=== PATIENT | male | born 1945 | race Two or more races ===

== ENCOUNTER 2025-02-02 15:11 | Inpatient (IN) | payer OTHER, SELFPAY ==
[2025-02-02] VITALS (10 sets, daily range): BP systolic 128–167; BP diastolic 54–86; BMI 29.7
[2025-02-02 08:07] LABS: % Basophils 0.4 % (0-2); % Eosinophils 0.1 % (0-6); % Immature Granulocytes 0.3 % (0-0.5); % Lymphocytes 12.3 % (20.5-51.1); % Monocytes 7.6 % (1.7-9.3); % Neutrophils 79.3 % (42.2-75.2); Absolute Lymphocytes 1.2 10^3/uL (1.2-3.4); Absolute Monocytes 0.7 10^3/uL (0.1-0.6); Absolute Neutrophils 7.4 10^3/uL (1.4-6.5); Hematocrit 38.9 % (39.0-52.0); Hemoglobin 13.3 g/dL (13.0-18.0); Mean Corp Hgb Conc. 34.2 g/dL (33.0-37.0); Mean Corpuscular Hgb 31.4 pg (27.0-31.0); Mean Corpuscular Volume 91.7 fL (80.0-94.0); Mean Platelet Volume 10.5 fL (7.4-10.4); Nucleated Red Blood Cells % 0 % (-); Platelet Count 206 10^3/uL (130-400); Red Blood Cell Count 4.24 10^6/uL (4.70-6.10); Red Cell Dist. Width 13.2 % (11.5-14.5); White Blood Cell Count 9.4 10^3/uL (4.8-10.8)
[2025-02-02 08:09] LABS: Urine Albumin 1+ (Neg - Trace); Urine Bilirubin Negative (Negative); Urine Character Clear (Clear); Urine Color Yellow; Urine Glucose Negative (Negative); Urine Ketone Negative (Negative); Urine Leukocyte Negative (Negative); Urine Nitrite Negative (Negative); Urine Occult Blood Negative (Negative); Urine Specific Gravity 1.025 (<1.030); Urine Urobilinogen Negative (Neg - 1+)
[2025-02-02 08:29] LABS: ALT (SGPT) 36 U/L (0-50); AST (SGOT) 37 U/L (17-59); Albumin 4.3 g/dl (3.5-5.0); Alkaline Phosphatase 71 U/L (38-126); Blood Urea Nitrogen 25 mg/dl (9-20); Calcium 9.9 mg/dl (8.4-10.2); Carbon Dioxide 23 mmol/L (22-30); Chloride 112 mmol/L (98-107); Glucose 118 mg/dl (70-99); Lipase 50 U/L (23-300); Potassium 4.2 mmol/L (3.5-5.1); Sodium 142 mmol/L (135-145); Total Bilirubin 0.5 mg/dl (0.2-1.3); Total Protein 8.2 g/dl (6.3-8.2); eGFR 47.36
[2025-02-02 08:42] LABS: Urine Urothelial Cell 0-2 /LPF (FEW)
[2025-02-02 08:43] LABS: Urine Bacteria Few (Negative); Urine Red Blood Cell 0-2 /HPF (0-2)
--- NOTE | 2025-02-02 08:50 | ED.GENMED ---
History of Present Illness
General
Chief Complaint: Abdominal Pain
Source: patient and spouse
Exam Limitations: none
Time Seen by Provider: 02/02/25 08:35
Nursing documentation reviewed up to this point in time: agreed with
History of Present Illness
History of Present Illness:
Note:
CHIEF COMPLAINT(S)
Vomiting and abdominal pain
HISTORY OF PRESENT ILLNESS
The patient is a 79-year-old male who presents with persistent vomiting and abdominal pain. The symptoms began on night, characterized initially by dry heaving. The patient reports experiencing pain primarily in the lower abdomen and left
lower back, describing it as severe. The pain occasionally extends to the upper abdomen, though to a lesser extent. The patient experiences abdominal bloating and has a history suggestive of kidney stones, having experienced a similar sensation
earlier this year.
The patient has a history of surgical repair for a tear thought to be related to a hernia approximately four years ago; a tear was repaired with a mesh placement. The patient experienced similar symptoms when previously diagnosed with and treated
for kidney stones.
ALLERGIES
The patient is allergic to Ciprofloxacin.
PAST SURGICAL HISTORY
The patient had a surgical repair involving mesh for an abdominal tear, possibly related to a past hernia, over four years ago. The patient has also undergone surgery for kidney stones removal.
MEDICATIONS
- Amlodipine (dose unspecified)
- Metoprolol (dose unspecified)
- Lisinopril (dose unspecified)
- Rosuvastatin (dose unspecified)
PHYSICAL EXAM
- Nursing notes reviewed and vital signs reviewed.
PROBLEM LIST
Acute:
- Vomiting
- Abdominal pain and bloating
Chronic:
- Hypertension
PLAN
- Insert intravenous line, obtain blood tests, and perform a Computed Tomography scan.
- Evaluate with urinalysis to assist in differential diagnosis of abdominal pain and vomiting.
- Administer anti-nausea medication intravenously.
- Assess need for pain management, offer pain medication if required.
DIFFERENTIAL DIAGNOSIS
The Differential Diagnosis includes, in no particular order and is not limited to:
1. Gastroenteritis
2. Small bowel obstruction
3. Renal colic secondary to recurrent kidney stones
4. Mesenteric ischemia
5. Peptic ulcer disease
6. Appendicitis
7. Pancreatitis
8. Hernia complications
9. Diverticulitis
10. Gastric volvulus
CARE-UPDATE
02/02/25 - 10:[address] Timmons the findings of possible Ciglin volvulus on T.M. Pelvis. Dr. Lui to assess patient, with a likely plan for surgical intervention in the operating room to repair the volvulus. Consideration for [facility] has been noted.
Expectation for patient admission to the hospitalists for further management and monitoring.
Disposition:
DIAGNOSIS
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
SUMMARY OF ENCOUNTER
The patient was seen in the emergency department due to persistent vomiting and abdominal pain, which appeared severe in the lower abdomen and left lower back. These symptoms began on night and were initially characterized by dry heaving.
Considering the severity and nature of the symptoms, a computed tomography (CT) scan was performed, suggesting a possible volvulus. The clinical presentation and imaging findings directed the diagnostic focus towards a sigmoid volvulus,
necessitating surgical intervention.
DISPOSITION
The patient was admitted to the hospitalists for further management and monitoring.
CONSIDERATION FOR ADMISSION
Admission was considered essential due to the diagnosis of sigmoid volvulus and the need for surgical intervention.
MANAGEMENT OF THE PATIENTS CARE WAS DISCUSSED WITH
Dr. Timmons was consulted regarding the findings of possible sigmoid volvulus on the CT scan. There was a discussion about assessing the patient with a likely plan for surgical intervention in the operating room to repair the volvulus.
INDEPENDENT INTERPRETATION OF TESTS
My independent interpretation of the CT scan indicated the presence of a sigmoid volvulus.
PLAN
The plan included surgical intervention to repair the sigmoid volvulus, with an expectation for patient admission to the hospitalists for further management and monitoring.
MEDICAL DECISION MAKING
Number and Complexity of Problems Addressed: The patient presented with acute symptoms of vomiting and abdominal pain, leading to a differential diagnosis process that included serious conditions like sigmoid volvulus. The complexity involved
assessing several potential causes of the symptoms to arrive at the need for surgical intervention.
Data: A CT scan was conducted, revealing the sigmoid volvulus, which significantly directed the subsequent treatment plan. The findings were corroborated by discussions with a surgical garment assembler.
Risk: The decision to admit the patient and proceed with surgical intervention was influenced by the potential severity of a sigmoid volvulus, which could pose life-threatening complications if not promptly addressed.
Phy Exam
Physical Exam
Physical Exam:
Physical Exam
General: no apparent distress, not acutely ill
Neck: supple. no meningeal signs. normal posterior pharynx
Heart: s1/s2 regular rate and rhythm, no murmur. equal radial
pulses.
HEENT: Pupils equal round reactive to light, EOMI
Lungs: no acute respiratory distress. clear bilaterally
Abdomen: normal bowel sounds. Abdomen distended, diffusely tender. No CVAT
Neuro: alert and oriented. no focal neurological deficits cranial nerves II through XII intact
Skin: no rash
Psychiatric: well kept. interactive and cooperative
Extremities: no edema. no calf tenderness. negative homans. good distal pulses
Course
Orders/Labs/Results
Orders:
Orders
02/02/25 07:53
Complete Blood Count/With Diff Urgent
Comprehensive Metabolic Panel Urgent
Lipase Urgent
Urinalysis Reflex To Culture Urgent
Date Specimen was Collected: 02/02/25
Time Specimen was Collected: 07:43
Urine Microscopic Reflex Cult Urgent
02/02/25 08:49
CT Abd/Pel (IV only)-DH only Urgent
Comment:
Reason For Exam: diffuse abd pain 4-5 days
02/02/25 10:29
Type+Screen Urgent
Abnormal Lab Results
02/02/25
07:53
RBC 4.24 L 10^6/uL
(4.70-6.10)
Hct 38.9 L %
(39.0-52.0)
MCH 31.4 H pg
(27.0-31.0)
MPV 10.5 H fL
(7.4-10.4)
Absolute Neuts (auto) 7.4 H 10^3/uL
(1.4-6.5)
Absolute Monos (auto) 0.7 H 10^3/uL
(0.1-0.6)
Neutrophils % 79.3 H %
(42.2-75.2)
Lymphocytes % 12.3 L %
(20.5-51.1)
Chloride 112 H mmol/L
(98-107)
BUN 25 H mg/dl
(9-20)
Creatinine 1.5 H mg/dL
(0.7-1.3)
Glucose 118 H mg/dl
(70-99)
Urine Bacteria (Reflex) Few A
(Negative)
Urine Albumin (Reflex) 1+ A
(Neg - Trace)
02/02/25 07:53
02/02/25 07:53
Vital Signs
Initial and Last Documented VS:
Initial Vital Signs
Temp Pulse Resp BP Pulse Ox
98.9 F 86 18 159/86 99
02/02/25 06:18 02/02/25 06:18 02/02/25 06:18 02/02/25 06:18 02/02/25 06:18
Last Documented Vital Signs
Temp Pulse Resp BP Pulse Ox
98.9 F 86 18 159/86 99
02/02/25 06:18 02/02/25 06:18 02/02/25 06:18 02/02/25 06:18 02/02/25 06:18
*Pulse Oximetry
Patient hypoxic: no (99)
*Critical Care Note
Total Time (30-74mins, 75-104mins- exclusive of procedures): Not Applicable
Update Note
Update Note:
Discussed with Dr. Fitzgerald who will evaluate patient for endoscopic decompression
ED Attending Note
-
Portions of this chart may have been created with voice recognition software.� Occasional wrong word or��sound alike� substitutions may have occurred due to the inherent limitations of voice recognition software.
Discharge Plan
Departure
Patient Disposition: Admit
Date of Disposition: 02/02/25
Time of Disposition: 10:32
Admit to: Med/Surg
Presentation/result/management discussed w/ accepting MD/DO: Hospitalist
Patient with high blood pressure during this ER visit?: Yes
Condition: Fair
Discharge Problem:
Volvulus of sigmoid colon
Referrals:
Dakota Ramesh MD [Family Provider]
Interventions
Interventions:
*Risk Screen - Suicide Last Done: 02/02/25 06:18
*General Assessment Last Done: 02/02/25 06:18
Discharge Date and Time
Print Language: MARSHALLESE
--- NOTE | 2025-02-02 10:42 | HPS.HSE ---
Family Physician
-
Family Physician: Dakota Ramesh
Chief Complaint
-
Abd pain
History of Present Illness
79M HTN HLD hx Sigmoid Volvulus managed conservatively for years hx Hernia repair p/w persistent vomiting abd pain. Started after dinner two nights ago prior to presentation. Before dinner, patient reported being in his usual state of health.
Severe pain primarily lower abdomen and left lower back. Pain occasionally extends to the upper abdomen. Patient also noted bloating. Pain persisted and worsen over next few days with associate nausea vomiting appetite loss. VSS stable on room
air. Labs relatively unremarkable, possible ANNY vs CKD noted Cr 1.5 CT noted large 11 cm diameter sigmoid volvulus. No CT evidence for colonic ischemia, pneumatosis, pneumoperitoneum, or ascites. Moderate to large amount of fecal material was
noted proximal to volvulus. GI and surgery evaluated and patient was taken urgently to endoscopy suite for decompression. Patient tolerated procedure well and noted significant relief in symptoms afterwards.
Medical History
Past Medical History
Past Medical History: Reports Other
Additional Past Medical History:
as above
Past Surgical History: Reports Other
Additional Past Surgical History:
as above
Social History
Tobacco: Non-smoker
Alcohol: None
Drug: None
Personal:
Living: With Family
Employment: Retired
Family History
Family History: Not pertinent (reviewed)
Allergies / Home Medications
Allergies reflects when Allergies were last updated in [facility] [place].
Home Medications with original date entered in [facility] [place]
Allergy/Medication List:
Allergies
Allergy/AdvReac Type Severity Reaction Status Date / Time
ciprofloxacin (From Cipro) Allergy Unknown Verified 02/02/25 16:16
Home Medications
amlodipine 10 mg tablet 10 mg PO DAILY 02/02/25
cyanocobalamin (vitamin B-12) 100 mcg tablet 100 mcg PO DAILY 02/02/25
metoprolol succinate 50 mg tablet,extended release 24 hr 50 mg PO DAILY 02/02/25
rosuvastatin 10 mg tablet 10 mg PO DAILY 02/02/25
Review of Systems
-
A 12 point ROS was completed and negative except as noted: Yes
Constitutional: Reports Other (as below)
Physical Exam
Vital Signs
Vital Signs
Temp Pulse Resp BP Pulse Ox
98.9 F 86 18 159/86 99
02/02/25 06:18 02/02/25 06:18 02/02/25 06:18 02/02/25 06:18 02/02/25 06:18
Physical Exam
General: Other (as below)
Laboratory Results
-
02/02/25 07:53
02/02/25 07:53
Laboratory Results
Total Bilirubin 0.5 mg/dl (0.2-1.3) 02/02/25 07:53
AST 37 U/L (17-59) 02/02/25 07:53
ALT 36 U/L (0-50) 02/02/25 07:53
Alkaline Phosphatase 71 U/L (38-126) 02/02/25 07:53
Lipase 50 U/L (23-300) 02/02/25 07:53
Impression/Plan
-
ROS
General: Denies fever chills night sweats unexpected weight loss
Neuro: Denies seizure shaking loss of consciousness dizziness vertigo
Psych: denies depression hallucinations confusion manic episodes
Endocrine: Denies polyuria polydipsia polyphagia heat/cold intolerance
HEENT: Denies blindness visual disturbances epistaxis
Pulmonary: denies coughing hemoptysis sneezing sob dyspnea on exertion
Cardiovascular: denies chest pain palpitations leg swelling
Hematology: denies signs symptoms of anemia easy bruising/bleeding
Gastrointestinal: Reports nausea vomiting abdomen pain constipation
Genito-Urinary: denies retention incontinence dysuria
Musculoskeletal: denies joint pain weakness
Dermatology: denies rash laceration bruising
Physical Exam
General: No pallor, cyanosis, or jaundice.
HEENT: Throat clear. PERRLA Normocephalic atraumatic
NECK: Supple. No JVD Carotid Bruits
RESPIRATORY: Lungs clear to auscultation. No crackles wheezes stridor
CVS: S1, S2 normal. RRR. No murmur, rub or gallop.
ABDOMEN: Soft, non-tender. No distension. Decreased bowel sounds
Rectum: Rectal tube in place
EXTREMITIES: No peripheral cyanosis or edema.
FENCE BUILDER: AOx3 conversant coherent
IMPRESSION:
79M HTN Sinus Tachycardia HLD hx Sigmoid Volvulus managed conservatively for years hx Hernia repair p/w persistent vomiting abd pain. Started after dinner two nights ago prior to presentation. Before dinner, patient reported being in his usual
state of health. Severe pain primarily lower abdomen and left lower back. Pain occasionally extends to the upper abdomen. Patient also noted bloating. Pain persisted and worsen over next few days with associate nausea vomiting appetite loss. VSS
stable on room air. Labs relatively unremarkable, possible ANNY vs CKD noted Cr 1.5 CT noted large 11 cm diameter sigmoid volvulus. No CT evidence for colonic ischemia, pneumatosis, pneumoperitoneum, or ascites. Moderate to large amount of fecal
material was noted proximal to volvulus. GI and surgery evaluated and patient was taken urgently to endoscopy suite for decompression. Patient tolerated procedure well and noted significant relief in symptoms afterwards.
PLAN:
#Volvulus obstruction status post decompression 02/02/2025
Telemetry admit
GI eval appreciated
Continue rectal tube, diet n.p.o. except meds, as per GI
IVF support
General Surgery eval appreciated, CRS to follow-up Monday
Dilaudid as needed moderate severe pain
Tylenol prn mild pain
Compazine prn nausea
#Possible ANNY vs CKD III
initial Cr 1.5
IVF support
monitor renal function
avoid nephrotoxic agents
#HTN
#Sinus Tachycardia
BP improved following procedure, likely pain causing elevations
homte antihypertensives resumed at reduced doses for now, with holding parameters
Amlodipine 5 mg daily Metoprolol XL 25 mg daily
IV hydralazine prn SBP>140 or DBP>100
IV Lopressor prn HR>120
trend BP and titrate antihypertensive regimen as necessary
#HLD
Statin resumed
dvt ppx Lovenox
GI ppx Protonix
Full Code
I spent a total of 77 minutes with the patient or on the floor. More than 50% of this time involved counseling and coordination of care.
--- NOTE | 2025-02-02 10:49 | CON.GI ---
Consultation
-
Date/Time Consultation Requested: 02/02/25
Date/Time Consultation Performed: 02/02/25
Requesting Provider:
Performing Provider:
Reason for Consultation: Abdominal pain
Medical History
Chief Complaint / HPI
Chief Complaint: Abdominal pain
History of Present Illness:
79-year-old male with no significant past medical history presenting with complaints of lower abdominal pain since Monday morning after breakfast. He reports that he also started dry heaving Monday night without any vomiting. The pain is constant
and is not subsiding, 6 on 10 in intensity without any radiation. Feels bloating. Some flatus but no bowel movement. No previous similar episodes. He reports that he had kidney stones few months ago and had stent placed at [facility] and
initially the pain felt like that but it is much severe. Never had bowel obstruction symptoms , no fevers or chills. No heartburn, trouble swallowing. Normal bowel pattern is 2-3 bowel movements on a daily basis, good evacuation, no laxatives or
stool softeners. No blood in the stool or black stool. No regular NSAID use.
He reports that he has known sigmoid volvulus and follows up with Dr. Little at [facility]. He was told that if he has obstructive symptoms, then it should be taken care of. He gets colonoscopies with her every 3 years for polyps, last
colonoscopy was about 3 years ago.
History of hernia repair 14 years ago and mesh placement. In the emergency room, no leukocytosis noted, creatinine elevated at 1.5 but normal LFTs and lipase.
CT scan of the abdomen and pelvis with IV contrast only showing sigmoid volvulus with large 11 cm dilated air distended loop of sigmoid colon extending superiorly to the level of diaphragm, moderate large amount of fecal material in the ascending,
transverse and descending colon, small hiatal hernia.
Past Medical History
Past Medical History: HTN and Hypercholesterolemia
Past Surgical History: Other (Inguinal hernia repair)
Social History
Tobacco: Non-Smoker
Alcohol: Occasional
Family History
Family History: Reviewed & Not Pertinent
Allergies / Home Medications
Allergy/AdvReac Type Severity Reaction Status Date / Time
ciprofloxacin (From Cipro) Allergy Unknown Verified 02/02/25 06:19
Review of Systems
-
All other systems: A 12 pt ROS was Negative except as stated above in HPI
Vital Signs
Temp Pulse Resp BP Pulse Ox
98.9 F 86 18 159/86 99
02/02/25 06:18 02/02/25 06:18 02/02/25 06:18 02/02/25 06:18 02/02/25 06:18
Physical Exam
Exam
GI: Tender (Lower abdominal discomfort without guarding or rigidity) and Distended
Results
WBC 9.4 10^3/uL (4.8-10.8) 02/02/25 07:53
Hgb 13.3 g/dL (13.0-18.0) 02/02/25 07:53
Hct 38.9 % (39.0-52.0) L 02/02/25 07:53
MCV 91.7 fL (80.0-94.0) 02/02/25 07:53
Plt Count 206 10^3/uL (130-400) 02/02/25 07:53
Absolute Neuts (auto) 7.4 10^3/uL (1.4-6.5) H 02/02/25 07:53
Sodium 142 mmol/L (135-145) 02/02/25 07:53
Potassium 4.2 mmol/L (3.5-5.1) 02/02/25 07:53
Chloride 112 mmol/L (98-107) H 02/02/25 07:53
Carbon Dioxide 23 mmol/L (22-30) 02/02/25 07:53
BUN 25 mg/dl (9-20) H 02/02/25 07:53
Creatinine 1.5 mg/dL (0.7-1.3) H 02/02/25 07:53
Calcium 9.9 mg/dl (8.4-10.2) 02/02/25 07:53
Total Bilirubin 0.5 mg/dl (0.2-1.3) 02/02/25 07:53
AST 37 U/L (17-59) 02/02/25 07:53
ALT 36 U/L (0-50) 02/02/25 07:53
Alkaline Phosphatase 71 U/L (38-126) 02/02/25 07:53
Lipase 50 U/L (23-300) 02/02/25 07:53
Diagnostic Image Results:
Prior GI Procedures:
EGD:
Colonoscopy:
Assessment / Plan
-
79-year-old male with h/o HTN, high cholesterol presenting with complaints of abdominal pain, bloating, dry heaves and CT scan suggesting sigmoid volvulus.
-Sigmoid volvulus with 11 cm air distended loop of sigmoid colon and moderately large amount of fecal material in the ascending colon.
N.p.o., continue IV hydration.
Electrolytes wnl
Explained to the patient that at this time, he will need an endoscopy decompression as this is an urgent situation. I discussed in detail regarding the procedure and also the risks including risk of perforation potentially requiring surgery and
also risk of possible endotracheal intubation if any aspiration risk noted.
Patient and are agreeable.
Surgical team aware.
-
-
Thank you for consultation and allowing me to participate in the patient's care. Please call the [facility] physician during the after hours with any questions or concerns.
[2025-02-02] MEDS: ZOFRAN 4 MG IV (11:53)
[2025-02-02] MEDS: MORPHINE SULFATE 4 MG IV (11:54)
--- NOTE | 2025-02-02 11:54 | CON.GS ---
Addendum entered and electronically signed by You Timmons MD 02/02/25 15:02:
Patient seen and examined this afternoon in the recovery unit after having undergone endoscopic decompression.
Agree with documented consultation note by surgical DOCK COORDINATOR consistent with my current examination and evaluation with additions noted here.
HPI: 79-year-old male presenting to the emergency department with worsening abdominal pain over the course the last 2 days. Progressive abdominal bloating distention discomfort and inability to pass stool since Monday. Due to persistence of his
symptoms he presented for emergency department evaluation and CT imaging was concerning for sigmoid volvulus.
Patient reports a known history of a tortuous/redundant colon and he follows with a colorectal surgeon at [facility], Dr. Hebert.
Post endoscopy he states that he feels much better with complete relief of abdominal pain and improved distention.
AFVSS
NAD AAO x 3. Resting comfortably in stretcher in recovery unit.
ABD: Softly distended, no tenderness on palpation, no rebound rigidity or guarding.
CT imaging reviewed consistent with sigmoid volvulus. No pneumatosis. No extraluminal air.
Assessment/plan: 79-year-old male who presented with sigmoid volvulus but without advanced ischemia, perforation or peritonitis.
Successful endoscopic decompression with gastroenterology. Appreciate assistance with care.
No indications for need for emergent/urgent surgical management however reviewed with patient indications for sigmoidectomy at this hospitalization due to high recurrence risk of sigmoid volvulus after initial event.
Colorectal surgery service will follow with patient for further discussions.
Original Note:
Consultation
-
Date/Time Consultation Performed: 02/02/25 1045
Requesting Provider: Marc
Medical History
-
Chief Complaint: abdominal pain
History of Present Illness:
Mr Barber is a 79 yo male with a h/o left inguinal hernia repair with mesh, HTN and recent ureteroscopy for renal stones at [facility] who presents through the ED today with lower abdominal pain x2 days. He initially developed lower abdominal pain on Monday
after breakfast and it has progressively worsened with dry heaving but no vomiting. He feels bloated but is able to pass some gas but no stools since that time. At baseline, he reports his bowels are regular and he normally stools 2x a day and
occasionally has lower abdominal cramping. He has followed with Dr. Hebert for many years for a known volvulus vs tortuosity of the colon (unclear from his description) but notes he has never had symtpoms or pain like this. He reports pain is
mostly to the lower abdomen with increasing distention over the past 2 days. He denies associated fevers or chills. He denies voiding dysfunction.
Past Medical History
Past Medical History: Other (renal calculi)
Past Surgical History: Hernia Repair (left inguinal), Urological (ureteroscopy with stent placement and subsequent removal recently at [facility] with Dr. Langston) and Other (last colonoscopy approx 3 years ago)
Social History
Tobacco: Non-Smoker
Alcohol: None
Personal:
Living: With Family
Family History
Family History: Reviewed & Not Pertinent
Allergies / Home Medications
Allergy/AdvReac Type Severity Reaction Status Date / Time
ciprofloxacin (From Cipro) Allergy Unknown Verified 02/02/25 06:19
Review of Systems
-
History Source: Patient and Family
All other systems: Negative unless noted
A 10 point review of systems was completed, and was negative except as per HPI.
Physical Exam
Vital Signs
Temp Pulse Resp BP Pulse Ox
98.9 F 86 18 159/86 99
02/02/25 06:18 02/02/25 06:18 02/02/25 06:18 02/02/25 06:18 02/02/25 06:18
02/01/25 02/02/25 02/03/25
06:59 06:59 06:59
Actual Weight 102 kg
Body Mass Index (BMI) 29.7
Lab Results
02/02/25 07:53
02/02/25 07:53
WBC 9.4 10^3/uL (4.8-10.8) 02/02/25 07:53
Hgb 13.3 g/dL (13.0-18.0) 02/02/25 07:53
Hct 38.9 % (39.0-52.0) L 02/02/25 07:53
Plt Count 206 10^3/uL (130-400) 02/02/25 07:53
Abs Immat Gran (auto) 0.0 10^3/uL (0-0.05) 02/02/25 07:53
Neutrophils % 79.3 % (42.2-75.2) H 02/02/25 07:53
Physical Exam
General: Well Developed and Well Nourished
HEENT: Moist Mucous Membranes
Respiratory: Non Labored Respirations
GI: Soft, Tender and Distended
Data Reviewed
-
CT Scan: Image Personally Visualized and interpreted, Report Reviewed by me, Discussed with Physician, Discussed with Patient and Discussed with Family
Labs: Labs Reviewed by me, Discussed with Physician, Discussed with Patient and Discussed with Family
Assessment / Plan
-
79 yo male with a h/o left inguinal hernia repair who presents with 2 days of increasing lower abdominal pain with distention, nausea and dry heaving. Able to pass flatus but not passing stool x2 days. CT imaging reviewed which is significant for
sigmoid volvulus with moderate to large fecal material above the level of obstruction. No free air or evidence of perforation. Afebrile. VSS. No leukocytosis. Seen in conjunction with GI: Dr. Medina in the ED.
Plan:
-urgent scope planned by GI to attempt decompression
-surgery on stand by in case emergent intervention warranted/failure of endoscopic decompression. d/w patient and that if emergent surgery is required, this would likely entail colostomy creation. If endoscopic decompression is successful,
would recommend eventual sigmoid resection to prevent recurrence later this admission after decompression/bowel prep able to be completed.
--- NOTE | 2025-02-02 16:15 | PTCARENOTE ---
Patient admitted in to room 434-2. AAOx3, at bedside. VSS. IVF LR at 70ml/hr initiated. Telemetry monitoring initiated, SR with 1 degree HB. Rectal decompression tube in place, patient to maintained left lying position. Patient able to make
needs known, call sotomayor with in reach.
[2025-02-02] MEDS: LR 1000 IV (17:21)
[2025-02-02] MEDS: NSS (PRESERVATIVE FREE) 10 ML IV (17:21)
[2025-02-02] MEDS: PROTONIX IV 40 MG IV (17:22)
[2025-02-02] MEDS: NORVASC 5 MG PO (18:27)
[2025-02-02] MEDS: TOPROL XL 25 MG PO (18:27)
[2025-02-03] VITALS (7 sets, daily range): BP systolic 137–165; BP diastolic 58–84
[2025-02-03] MEDS: DILAUDID 0.25 MG IV (03:25)
[2025-02-03] MEDS: LR 1000 IV (06:18)
[2025-02-03 06:28] LABS: Hemoglobin 12.5 g/dL (13.0-18.0); Mean Corp Hgb Conc. 33.8 g/dL (33.0-37.0); Mean Corpuscular Hgb 31.3 pg (27.0-31.0); Mean Corpuscular Volume 92.7 fL (80.0-94.0); Mean Platelet Volume 10.5 fL (7.4-10.4); Platelet Count 193 10^3/uL (130-400); Red Blood Cell Count 3.99 10^6/uL (4.70-6.10); Red Cell Dist. Width 13.2 % (11.5-14.5); White Blood Cell Count 7.2 10^3/uL (4.8-10.8)
[2025-02-03 06:47] LABS: Blood Urea Nitrogen 17 mg/dl (9-20); Calcium 9.1 mg/dl (8.4-10.2); Carbon Dioxide 23 mmol/L (22-30); Chloride 113 mmol/L (98-107); Estimated Creatinine Clearance 49 ml/min; Glucose 90 mg/dl (70-99); Magnesium 2.1 mg/dl (1.6-2.3); Potassium 3.7 mmol/L (3.5-5.1); Sodium 142 mmol/L (135-145); eGFR 51.45
[2025-02-03] MEDS: PROTONIX IV 40 MG IV (09:24)
[2025-02-03] MEDS: NSS (PRESERVATIVE FREE) 10 ML IV (09:25)
[2025-02-03] MEDS: TOPROL XL 25 MG PO (09:26)
[2025-02-03] MEDS: THERAGRAN 1 TABLET PO (09:27)
[2025-02-03] MEDS: NORVASC 5 MG PO (09:27)
--- NOTE | 2025-02-03 09:48 | W.PN.CRS1 ---
Today's Communication / Plan
-
As below
Assessment/Plan
-
79-year-old male with PMH of HTN, HLD and kidney stones who presents with abdominal pain, bloating and nausea, found to have sigmoid volvulus on CT; underwent colonoscopic detorsion on 02/[address] Fitzgerald with placement of rectal tube, no necrotic
or ischemic mucosa was seen
AFVSS
WBC 7.2, Hb 12.5, CR 1.4
�Sigmoid volvulus s/p detorsion
�Will repeat AXR to assess distention and tube placement
�Discussed risks of recurrence (as high as 85%, can recur within days to months); therefore, recommend sigmoidectomy this admission; spouse was present for this conversation
�Requested nurse to attach drainage system to rectal tube, such as a urimeter
�Will request cardiology consult for perioperative risk assessment
�Will advance to clears for today
�Tentatively on schedule for Monday; so continue clears tomorrow and plan for bowel prep in the afternoon
� Recommend DVT PPx with Lovenox
�Continue home meds
� Appreciate hospitalist
Subjective Data
Subjective Data
Date of Service: February 03, 2025
No overnight events.
Pain has resolved. Bloating has improved.
Denies nausea/vomiting.
+flatus +BMs (has rectal tube in place without drainage system) +voiding
Objective Data
-
Vital Signs
Temp Pulse Resp BP Pulse Ox
98.0 F 61 18 148/58 99
02/03/25 07:00 02/03/25 09:26 02/03/25 07:00 02/03/25 09:26 02/03/25 07:00
Intake & Output
02/02/25 02/03/25 02/04/25
06:59 06:59 06:59
Intake Total 170 / 170
Output Total 900 / 900
Balance -730 / -730
Intake:
Oral fluids 120 / 120
IV fluids (Total) 50 / 50
normal saline 50 / 50
Output:
Urine, Voided 900 / 900
Lab Results
02/03/25 05:34
02/03/25 05:34
Physical Exam
-
General: No Acute Distress and AOx3
HEENT: Grossly Normal
Abdomen: Soft, Distended (Mildly distended), Non Tender, No Guarding and No Rebound
Skin: Warm and Dry
Data Reviewed
-
CT Scan: Image Reviewed and Report Reviewed
--- NOTE | 2025-02-03 10:55 | W.PN.HOSP.TC ---
Today's Communication/Plan
-
see bold
Assessment / Plan
Assessment / Plan
HPI: 79M HTN HLD hx Sigmoid Volvulus managed conservatively for years hx Hernia repair p/w persistent vomiting abd pain. Started after dinner two nights ago prior to presentation. Before dinner, patient reported being in his usual state of health.
Severe pain primarily lower abdomen and left lower back. Pain occasionally extends to the upper abdomen. Patient also noted bloating. Pain persisted and worsen over next few days with associate nausea vomiting appetite loss. VSS stable on room
air. Labs relatively unremarkable, possible ANNY vs CKD noted Cr 1.5 CT noted large 11 cm diameter sigmoid volvulus. No CT evidence for colonic ischemia, pneumatosis, pneumoperitoneum, or ascites. Moderate to large amount of fecal material was
noted proximal to volvulus. GI and surgery evaluated and patient was taken urgently to endoscopy suite for decompression. Patient tolerated procedure well and noted significant relief in symptoms afterwards.
#Volvulus obstruction status post decompression 02/02/2025
Appreciate GI and colorectal surgery input, status post urgent decompression 02/02/2025
02/03 abdominal x-ray shows decompression of the sigmoid colon status post rectal tube placement
Colorectal surgery plans for surgery on Saturday 02/03
Patient denies history of VA
Check EKG, check echocardiogram for perioperative risk assessment
#Possible ANNY vs CKD III
Creatinine 1.4 today, was 1.5
Continue IV fluids, monitor creatinine, no nephrotoxic drugs/NSAIDs
# Essential hypertension
Resume previous amlodipine 10 mg daily, metoprolol succinate 50 mg daily
#Sinus Tachycardia
Resolved
#HLD
Check fasting lipid profile, continue statin
DVT prophylaxis�subcu Lovenox
Total time spent to see the patient on the floor, examine the patient, review data and lab results, discuss treatment plan with patient, nursing staff around 50 minutes.
Physical Exam
General: No acute distress
HEENT: Normocephalic, Atraumatic, EOMI, MMM
Respiratory: Clear to Auscultation bilaterally
Cardiac: Normal S1/S2, Regular Rate and Rhythm
GI: Soft, Nontender, Nondistended, Normal Bowel Sounds
Extremities: No Clubbing, Cyanosis, or Edema
Neuro: Nonfocal/Grossly Intact
Psych: Calm, Cooperative
Derm: No Visible lesions
Anticipated Discharge: > 48 hours
Subjective/Interval History
-
Date of Service: February 03, 2025
Patient denies abdominal pain. No nausea, no vomiting. Denies chest pain, denies shortness of breath. No fever.
Objective Data
-
Labs:
Laboratory Results
02/03/25
05:34
WBC 7.2
Hgb 12.5 L
Hct 37.0 L
Plt Count 193
Sodium 142
Potassium 3.7
Chloride 113 H
Carbon Dioxide 23
BUN 17
Creatinine 1.4 H
Glucose 90
Calcium 9.1
Vital Signs:
Vital Signs
Temp Pulse Resp BP Pulse Ox
98.0 F 61 18 148/58 99
02/03/25 07:00 02/03/25 09:26 02/03/25 07:00 02/03/25 09:26 02/03/25 07:00
I&O
02/02/25 02/03/25 02/04/25
06:59 06:59 06:59
Intake Total 170 / 170
Output Total 900 / 900
Balance -730 / -730
--- NOTE | 2025-02-03 14:03 | CON.CAR ---
Consultation
Consultation Request
Date/Time Consultation Requested: 02/03/2025
Date/Time Consultation Performed: 02/02/2025
Requesting Provider: Dr. Olivarez
Performing Provider: Latricia Vale PA-C for Dr. Wu
Reason for Consultation: Pre-operative risk assessment
Medical History
Allergies / Home Medications
Allergy/AdvReac Type Severity Reaction Status Date / Time
ciprofloxacin (From Cipro) Allergy Unknown Verified 02/02/25 16:16
�Medication �Instructions �Recorded �Confirmed �Type
amlodipine 10 mg tablet 10 mg PO DAILY 02/02/25 02/02/25 History
cyanocobalamin (vitamin B-12) 100 100 mcg PO DAILY 02/02/25 02/02/25 History
mcg tablet
metoprolol succinate 50 mg 50 mg PO DAILY 02/02/25 02/02/25 History
tablet,extended release 24 hr
rosuvastatin 10 mg tablet 10 mg PO DAILY 02/02/25 02/02/25 History
Physical Exam
Vital Signs
Temp Pulse Resp BP Pulse Ox
97.9 F 79 18 157/84 100
02/03/25 11:00 02/03/25 11:00 02/03/25 11:00 02/03/25 11:00 02/03/25 11:00
Lab Results
02/03/25 05:34
02/03/25 05:34
--- NOTE | 2025-02-03 14:20 | CM ---
warranty manager reviewed patient's chart and met with patient and patient lives with his spouse in a 2 story home is independent with adl's and ambulation, no dme, patient follows with [facility], and has an appointment next week. AD packet and
information provided to patient, home with spouse when stable, no needs.
PCP: Dakota Thurston
Pharmacy: [facility] in [place].
[2025-02-03 18:10] LABS: Troponin I 0.023 ng/ml
[2025-02-03] MEDS: LOVENOX 40 MG SC (18:14)
[2025-02-03] MEDS: NORVASC 10 MG PO (18:15)
--- NOTE | 2025-02-03 19:34 | W.PN.GI.CBS2 ---
Today's Communication / Plan
-
-Sigmoid volvulus with 11 cm air distended loop of sigmoid colon and moderately large amount of fecal material in the ascending colon.
Now s/p decompression and rectal tube placement.
Significant improvement in abdominal exam.
On clear liquid diet
Reviewed colorectal eval and see tentaive plan for sigmoidectomy 02/05/25
Further management per surgery, will sign off,pls call back if needed
Assessment / Plan
-
79-year-old male with h/o HTN, high cholesterol presenting with complaints of abdominal pain, bloating, dry heaves and CT scan suggesting sigmoid volvulus.
-Sigmoid volvulus with 11 cm air distended loop of sigmoid colon and moderately large amount of fecal material in the ascending colon.
Now s/p decompression and rectal tube placement.
Significant improvement in abdominal exam.
On clear liquid diet
Reviewed colorectal eval and see tentaive plan for sigmoidectomy 02/05/25
Further management per surgery, will sign off,pls call back if needed
Subjective
Subjective
Date of Service: February 03, 2025
Patient without any abdominal pain, nausea or vomiting. Feels much improved without any abdominal discomfort
Objective
Data Reviewed
Laboratory Data:
Laboratory Results
02/03/25 05:34
02/03/25 05:34
Laboratory Results
Magnesium 2.1 mg/dl (1.6-2.3) 02/03/25 05:34
Total Bilirubin 0.5 mg/dl (0.2-1.3) 02/02/25 07:53
AST 37 U/L (17-59) 02/02/25 07:53
ALT 36 U/L (0-50) 02/02/25 07:53
Alkaline Phosphatase 71 U/L (38-126) 02/02/25 07:53
Lipase 50 U/L (23-300) 02/02/25 07:53
Vital Signs and I&O:
Vital Signs
Temp Pulse Resp BP Pulse Ox
97.9 F 81 18 137/77 100
02/03/25 19:16 02/03/25 19:16 02/03/25 19:16 02/03/25 19:16 02/03/25 19:16
I&O
02/02/25 02/03/25 02/04/25
06:59 06:59 06:59
Intake Total 170 / 170
Output Total 900 / 900
Balance -730 / -730
Physical Exam
Physical Exam
GI: Soft and Non Tender
[2025-02-04] VITALS (8 sets, daily range): BP systolic 138–164; BP diastolic 61–89
[2025-02-04] MEDS: LR 1000 IV ×2 (04:35→21:16)
[2025-02-04 06:02] LABS: Hematocrit 37.8 % (39.0-52.0); Hemoglobin 13.2 g/dL (13.0-18.0); Mean Corp Hgb Conc. 34.9 g/dL (33.0-37.0); Mean Corpuscular Hgb 31.8 pg (27.0-31.0); Mean Corpuscular Volume 91.1 fL (80.0-94.0); Mean Platelet Volume 10.4 fL (7.4-10.4); Platelet Count 195 10^3/uL (130-400); Red Blood Cell Count 4.15 10^6/uL (4.70-6.10); Red Cell Dist. Width 13.2 % (11.5-14.5); White Blood Cell Count 6.7 10^3/uL (4.8-10.8)
[2025-02-04 06:26] LABS: Blood Urea Nitrogen 14 mg/dl (9-20); Calcium 9.6 mg/dl (8.4-10.2); Carbon Dioxide 25 mmol/L (22-30); Chloride 111 mmol/L (98-107); Estimated Creatinine Clearance 57 ml/min; Glucose 95 mg/dl (70-99); HDL Cholesterol 53 mg/dl; LDL Cholesterol, Calculated 64 mg/dl; Magnesium 2.1 mg/dl (1.6-2.3); Potassium 3.6 mmol/L (3.5-5.1); Sodium 143 mmol/L (135-145); Total Cholesterol 135 mg/dl (50-199); Triglyceride 91 mg/dl (10-149); Very Low Density Lipoprotein 18 mg/dl (0-30); eGFR > 60.00
--- NOTE | 2025-02-04 08:17 | W.PN.CRS1 ---
Today's Communication / Plan
-
As below
Assessment/Plan
-
79-year-old male with PMH of HTN, HLD and kidney stones who presents with abdominal pain, bloating and nausea, found to have sigmoid volvulus on CT; underwent colonoscopic detorsion on 02/[address] Fitzgerald with placement of rectal tube, no necrotic
or ischemic mucosa was seen
AFVSS
WBC 6.7, Hb 13.2, CR 1.2
�Sigmoid volvulus s/p detorsion
�Cont clears, NPO at midnight for surgery tmrw
�Bowel prep to start early afternoon with oral antibiotics
�Discussed risks of surgery, including but not limited to, bleeding, infection, damage nearby structures, anastomotic leak/failure, conversion to open, need for colostomy; patient and patient's spouse understood well
�Nursing was unable to attach draining system to rectal tube
-Will start prep with rectal tube in place; okay to place Flexi-Seal around rectal tube if this is possible; depending on how the bowel prep goes, may need to remove rectal tube
�Requested medical clearance; obtaining EKG and echo
�Will advance to clears for today
� Recommend DVT PPx with Lovenox
� Continue home meds
� Appreciate hospitalist
Subjective Data
Subjective Data
Date of Service: February 04, 2025
No overnight events.
Denies any pain.
Denies nausea/vomiting.
+flatus +BMs (rectal tube in place) +voiding
Objective Data
-
Vital Signs
Temp Pulse Resp BP Pulse Ox
98.3 F 85 16 140/74 99
02/04/25 07:43 02/04/25 07:43 02/04/25 07:43 02/04/25 07:43 02/04/25 07:43
Intake & Output
02/03/25 02/04/25 02/05/25
06:59 06:59 06:59
Intake Total 170 / 170
Output Total 900 / 900
Balance -730 / -730
Intake:
Oral fluids 120 / 120
IV fluids (Total) 50 / 50
normal saline 50 / 50
Output:
Urine, Voided 900 / 900
Lab Results
02/04/25 05:28
02/04/25 05:28
Physical Exam
-
General: No Acute Distress and AOx3
HEENT: Grossly Normal
Abdomen: Soft, Distended (Minimally distended), Non Tender, No Guarding and No Rebound
Skin: Warm and Dry
[2025-02-04] MEDS: TOPROL XL 50 MG PO (09:10)
[2025-02-04] MEDS: THERAGRAN 1 TABLET PO (09:10)
[2025-02-04] MEDS: NSS (PRESERVATIVE FREE) 10 ML IV (09:10)
[2025-02-04] MEDS: PROTONIX IV 40 MG IV (09:10)
--- NOTE | 2025-02-04 09:12 | W.PN.HOSP.TC ---
Today's Communication/Plan
-
Colorectal surgery plans for surgery tomorrow
Assessment / Plan
Assessment / Plan
HPI: 79M HTN HLD hx Sigmoid Volvulus managed conservatively for years hx Hernia repair p/w persistent vomiting abd pain. Started after dinner two nights ago prior to presentation. Before dinner, patient reported being in his usual state of health.
Severe pain primarily lower abdomen and left lower back. Pain occasionally extends to the upper abdomen. Patient also noted bloating. Pain persisted and worsen over next few days with associate nausea vomiting appetite loss. VSS stable on room
air. Labs relatively unremarkable, possible ANNY vs CKD noted Cr 1.5 CT noted large 11 cm diameter sigmoid volvulus. No CT evidence for colonic ischemia, pneumatosis, pneumoperitoneum, or ascites. Moderate to large amount of fecal material was
noted proximal to volvulus. GI and surgery evaluated and patient was taken urgently to endoscopy suite for decompression. Patient tolerated procedure well and noted significant relief in symptoms afterwards.
#Volvulus obstruction status post decompression 02/02/2025
Appreciate GI and colorectal surgery input, status post urgent decompression 02/02/2025
02/03 abdominal x-ray shows decompression of the sigmoid colon status post rectal tube placement
Colorectal surgery plans for surgery on Saturday 02/03
Patient denies history of CA, stroke
Denies shortness of breath with exertion, chest pain with exertion, lightheadedness or dizziness with exertion, syncope or near syncope
Echo reviewed, trop neg, EKG shows LBBB with prolonged QTc
Patient's risk is 6%, which is acceptable, and he may proceed for surgery
Would avoid Zofran and other QTc prolonging agents
#Possible ANNY vs CKD III
Creatinine 1.2, was 1.4, was 1.5
Discontinue IV fluids, monitor creatinine, no nephrotoxic drugs/NSAIDs
# Essential hypertension
Resumed previous amlodipine 10 mg daily, metoprolol succinate 50 mg daily
#Sinus Tachycardia
Resolved
#HLD
Check fasting lipid profile, continue statin
DVT prophylaxis�subcu Lovenox
Updated at bedside 02/04
Total time spent to see the patient on the floor, examine the patient, review data and lab results, discuss treatment plan with patient, nursing staff around 52 minutes.
Physical Exam
General: No acute distress
HEENT: Normocephalic, Atraumatic, EOMI, MMM
Respiratory: Clear to Auscultation bilaterally
Cardiac: Normal S1/S2, Regular Rate and Rhythm
GI: Soft, Nontender, Nondistended, Normal Bowel Sounds
Extremities: No Clubbing, Cyanosis, or Edema
Neuro: Nonfocal/Grossly Intact
Psych: Calm, Cooperative
Derm: No Visible lesions
Anticipated Discharge: > 48 hours
Subjective/Interval History
-
Date of Service: February 04, 2025
Denies abdominal pain. No nausea, no vomiting. No chest pain, no shortness of breath. No fever.
Objective Data
-
Labs:
Laboratory Results
02/04/25 02/04/25
05:28 08:22
WBC 6.7
Hgb 13.2
Hct 37.8 L
Plt Count 195
PT Pending
INR Pending
Sodium 143
Potassium 3.6
Chloride 111 H
Carbon Dioxide 25
BUN 14
Creatinine 1.2
Glucose 95
Calcium 9.6
Vital Signs:
Vital Signs
Temp Pulse Resp BP Pulse Ox
98.3 F 85 16 140/74 99
02/04/25 07:43 02/04/25 07:43 02/04/25 07:43 02/04/25 07:43 02/04/25 07:43
I&O
02/03/25 02/04/25 02/05/25
06:59 06:59 06:59
Intake Total 170 / 170
Output Total 900 / 900
Balance -730 / -730
[2025-02-04 10:08] LABS: INR 1.08; PT 14.3 Sec (11.4-14.6)
[2025-02-04 10:27] LABS: Glycohemoglobin (HgbA1c) 5.9 % (4.0-5.6)
--- NOTE | 2025-02-04 11:50 | CM ---
Chart reviewed and case manage will follow with progress for discharge planning needs, patient lives with spouse.
Plan; To follow patient progress, patient was independent prior to admission.
[2025-02-04] MEDS: NULYTELY SOLUTION 4 LITERS PO (13:39)
[2025-02-04] MEDS: FLAGYL 1000 MG PO ×3 (14:36→23:18)
[2025-02-04] MEDS: NEOMYCIN 1000 MG PO ×3 (15:35→23:18)
[2025-02-04] MEDS: NORVASC 10 MG PO (16:37)
[2025-02-04 16:56] LABS: NT-proBNP 338 pg/ml
[2025-02-04] MEDS: APRESOLINE 5 MG IV (23:53)
[2025-02-05] VITALS (16 sets, daily range): BP systolic 136–164; BP diastolic 55–76
--- NOTE | 2025-02-05 04:17 | DOWNTIME ---
Addendum entered by Michelle Main RN 02/05/25 14:13:
Downtime was 02/05/2025 from 0100 to 02/05/2025 at 0415
Original Note:
There was a [employer] Downtime on 02/04/2025 from 0100 to 02/05/2025 at 0415. Downtime documentation of patient's care, including medication administrations, has been reconciled in the electronic record per guidelines. Refer to the
patient's paper chart under the miscellaneous tab to see printed paper medication records and downtime forms.
[2025-02-05 06:49] LABS: % Basophils 0.5 % (0-2); % Eosinophils 1.2 % (0-6); % Immature Granulocytes 0.3 % (0-0.5); % Lymphocytes 29.7 % (20.5-51.1); % Monocytes 8.8 % (1.7-9.3); % Neutrophils 59.5 % (42.2-75.2); Absolute Eosinophils 0.1 10^3/uL (0-0.7); Absolute Lymphocytes 2.3 10^3/uL (1.2-3.4); Absolute Monocytes 0.7 10^3/uL (0.1-0.6); Absolute Neutrophils 4.5 10^3/uL (1.4-6.5); Hemoglobin 13.2 g/dL (13.0-18.0); Mean Corp Hgb Conc. 34.7 g/dL (33.0-37.0); Mean Corpuscular Hgb 31.7 pg (27.0-31.0); Mean Corpuscular Volume 91.1 fL (80.0-94.0); Mean Platelet Volume 10.3 fL (7.4-10.4); Nucleated Red Blood Cells % 0 % (-); Platelet Count 202 10^3/uL (130-400); Red Blood Cell Count 4.17 10^6/uL (4.70-6.10); Red Cell Dist. Width 13.2 % (11.5-14.5); White Blood Cell Count 7.6 10^3/uL (4.8-10.8)
[2025-02-05 06:58] LABS: APTT 28.5 Sec (23.4-35.0)
[2025-02-05 07:15] LABS: ALT (SGPT) 35 U/L (0-50); AST (SGOT) 58 U/L (17-59); Alkaline Phosphatase 87 U/L (38-126); Blood Urea Nitrogen 12 mg/dl (9-20); Calcium 9.5 mg/dl (8.4-10.2); Carbon Dioxide 18 mmol/L (22-30); Chloride 112 mmol/L (98-107); Estimated Creatinine Clearance 49 ml/min; Glucose 106 mg/dl (70-99); Magnesium 1.8 mg/dl (1.6-2.3); Potassium 3.6 mmol/L (3.5-5.1); Sodium 141 mmol/L (135-145); Total Bilirubin 0.5 mg/dl (0.2-1.3); Total Protein 7.4 g/dl (6.3-8.2); eGFR 51.45
[2025-02-05] MEDS: NSS (PRESERVATIVE FREE) 10 ML IV (08:26)
[2025-02-05] MEDS: PROTONIX IV 40 MG IV (08:27)
[2025-02-05] MEDS: THERAGRAN PO (08:27)
[2025-02-05] MEDS: TOPROL XL 50 MG PO (08:28)
[2025-02-05] MEDS: TYLENOL 1000 MG PO ×2 (09:17→17:32)
[2025-02-05] MEDS: HEPARIN 5000 UNITS SC (09:18)
[2025-02-05] MEDS: NEURONTIN 600 MG PO (09:19)
--- NOTE | 2025-02-05 12:19 | W.IMMPOSTOP ---
Surgical Immed Post Op Note
-
Primary Surgeon: Elmer Jeter MD
Assisting Surgeon: GIOVANA Crouch
Pre-op Diagnosis: Sigmoid volvulus
Post-op Diagnosis: Sigmoid volvulus
Procedure Performed: Sigmoidectomy, flexible sigmoidoscopy
Anesthesia Type: General
Specimen / Cultures: Sigmoid
Estimated Blood Loss: 20 mL
Complications: None
Operative Findings: Very redundant sigmoid colon, moderately distended, that was twisted, but well-perfused; transected at the rectosigmoid junction and at the proximal sigmoid, ligated mesentery with Voyant LigaSure; performed [id number]-[id number] stapled
anastomosis; placed crotch stitch; performed flexible sigmoidoscopy, anastomosis intact and negative leak test; closed mesenteric defect; hemostasis assured
--- NOTE | 2025-02-05 12:21 | OR.RPT ---
Operative Report
Operative Report
DATE OF OPERATION: 02/05/2025
SURGEON: Elmer Jeter MD
PREOPERATIVE DIAGNOSIS: Sigmoid volvulus
POSTOPERATIVE DIAGNOSIS: Sigmoid volvulus
OPERATION: Sigmoidectomy, flexible sigmoidoscopy
ASSISTANTS:
1. GIOVANA Crouch
ANESTHESIA: General
ESTIMATED BLOOD LOSS: 20 mL
UOP: 150mL
IVF: 1.0L
FINDINGS:
1. Redundant and moderately distended sigmoid colon; twisted around its mesentery, but well-perfused
2. Performed [id number] stapled anastomosis from proximal sigmoid to rectosigmoid junction; negative leak test on flexible sigmoidoscopy
SPECIMENS:
1. Sigmoid colon
DRAINS: None
COMPLICATIONS: No immediate complications.
INDICATIONS: The patient is a 79-year-old male who presented to the [facility] with abdominal bloating, pain and nausea/vomiting. A CT confirmed a sigmoid volvulus. He underwent endoscopic detorsion with placement of rectal tube on 02/02. The
colon decompressed well. Therefore, the patient was recommended to undergo definitive sigmoidectomy due to the risk of recurrence. The operation was discussed with the patient in detail, including the risks, benefits and alternatives. Risks
described included, but not limited to, bleeding, infection, anastomotic leak, ureteral injury, bowel or solid organ injury, conversion to laparotomy, need for colostomy and anesthetic risks. The patient understood and agreed to proceed.
PROCEDURE IN DETAIL: The patient was taken to the operating room and placed on the operating table in supine position. Sequential compression devices were placed bilaterally. General anesthesia was induced and the patient was intubated without
complication. The patient was placed in lithotomy position with the bilateral arms secured in extended position. Martinez catheter was placed with sterile technique. Anesthesia placed an orogastric tube. Preoperative antibiotics were given. The
abdomen was shaved, prepped and draped in a sterile fashion. A marking pen was used to latrice out the midline. A time-out was performed verifying the correct patient, procedure, operative site, positioning, and special equipment.
An infraumbilical midline incision was made about 5.5 cm in length. This was taken down to the level of fascia with electrocautery. Hemostasis was assured. The fascia was incised with electrocautery, revealing preperitoneal fat. [place] clamps
were used to grasp and elevate the peritoneum. After confirming no intra-abdominal structures, the peritoneum was incised with Metzenbaum scissors. Entry into the abdominal cavity was confirmed and no injuries were noted to nearby structures. The
fascia was opened to the extent of the skin incision. An Neto wound protector was placed. I immediately identified the redundant sigmoid colon and extracorporealized it. There was a twist around its mesentery, which was easily reduced. The
sigmoid colon was moderately distended, but became normal in caliber at the proximal sigmoid colon, which had its usual anatomic attachments to the left lower quadrant. The distention tapered toward the rectosigmoid junction. The rectum appeared
healthy. The patient was placed in mild Trendelenburg position and the small bowel was swept cephalad. I elected to proceed with sigmoidectomy, transecting at the rectosigmoid junction and the proximal sigmoid. At each point, a hole was created
in the mesentery at the mesenteric border. The 80 mm LUIS stapler was used to divide the bowel with a purple load. The mesentery was serially ligated with the Voyant LigaSure, staying close to the mesenteric border, avoiding injury to any nearby
structures. The cut edge of the mesentery was hemostatic. The rectosigmoid easily reached the extraperitoneal space, so I proceeded with a [id number] stapled anastomosis. I placed blue towels to protect the operative field. I cut the
antimesenteric corners of the staple line. I lined up the antimesenteric portion of the rectosigmoid and proximal sigmoid. I stapled and divided the common channel with a 80mm LUIS with purple load. The staple line was hemostatic. There was no
visible stool in the area of the anastomosis. I aligned the common colotomy with Allis clamps. I stapled this closed with a 60 mm TA stapler. The mesenteric corner of the staple line had a slow ooze, which was controlled with a [id number]
3-0 Vicryl stitch. The staple line was now hemostatic. I placed a crotch stitch with a 3-0 Vicryl interrupted stitch. My hospital administrative assistant occluded the proximal limb while I performed a flexible sigmoidoscopy. Saline was placed within the operative
field. The flexible sigmoidoscope was passed transanally. There was minimal liquid stool noted in the distal rectum, which was easily suctioned. The remainder of the rectum appeared healthy. The sigmoidoscope was advanced to the anastomosis. No
bubbling was noted. The anastomosis was intact and was not bleeding. The sigmoidoscope was removed while desufflating. The mesenteric defect was closed with a running 2-0 Vicryl stitch. The operative field was checked once more and was
hemostatic. The operative field was irrigated with 500 mL of saline.
The peritoneum was closed with a running 0 Vicryl stitch. The fascia was closed with 2-0 PDS, starting at the corners and tying in the middle. The fascial layer was injected with 30 mL of 0.25% Marcaine with epi and 0.3 mg of Decadron. The
subcutaneous tissue was irrigated and hemostasis confirmed with electrocautery. Another 30 mL of local was injected subcutaneously around the incision. The skin was closed with 4-0 Monocryl in a running subcuticular fashion. The incision was
dressed with Dermabond.
At this point, the procedure was complete. The patient was awoken and extubated without complication. All needle, sponge and instrument counts were reported as correct. The patient tolerated the procedure well and was transferred to the recovery
room in stable condition with Martinez in place.
DICTATED BY: Elmer Jeter MD
--- NOTE | 2025-02-05 12:59 | CM ---
Chart reviewed and patient is for discharge today, plan is to home when stable, will review with patient visiting nurse options after discharge.
Plan; Home with spouse and possible visiting nurse at discharge.
[2025-02-05] MEDS: DILAUDID 0.25 MG IV (13:01)
--- NOTE | 2025-02-05 15:26 | W.PN.HOSP.TC ---
Today's Communication/Plan
-
see bold
Assessment / Plan
Assessment / Plan
HPI: 79M HTN HLD hx Sigmoid Volvulus managed conservatively for years hx Hernia repair p/w persistent vomiting abd pain. Started after dinner two nights ago prior to presentation. Before dinner, patient reported being in his usual state of health.
Severe pain primarily lower abdomen and left lower back. Pain occasionally extends to the upper abdomen. Patient also noted bloating. Pain persisted and worsen over next few days with associate nausea vomiting appetite loss. VSS stable on room
air. Labs relatively unremarkable, possible ANNY vs CKD noted Cr 1.5 CT noted large 11 cm diameter sigmoid volvulus. No CT evidence for colonic ischemia, pneumatosis, pneumoperitoneum, or ascites. Moderate to large amount of fecal material was
noted proximal to volvulus. GI and surgery evaluated and patient was taken urgently to endoscopy suite for decompression. Patient tolerated procedure well and noted significant relief in symptoms afterwards.
#Volvulus obstruction status post decompression 02/02/2025
Appreciate GI and colorectal surgery input, status post urgent decompression 02/02/2025
02/03 abdominal x-ray shows decompression of the sigmoid colon status post rectal tube placement
Patient denies history of [place], stroke
Denies shortness of breath with exertion, chest pain with exertion, lightheadedness or dizziness with exertion, syncope or near syncope
Echo reviewed, trop neg, EKG shows LBBB with prolonged QTc
Patient's risk is 6%, which is acceptable, and he may proceed for surgery
Status post sigmoidectomy with flexible sigmoidoscopy on 02/[address] Elmer Jeter
Clear liquid diet, pain control, PT/OT, Entereg
#Prolonged QTc
Would avoid Zofran and other QTc prolonging agents
#Possible ANNY vs CKD III
Improved
Gentle IV fluids, monitor creatinine, no nephrotoxic drugs/NSAIDs
#Non-anion gap metabolic acidosis
Start oral sodium bicarb
# Essential hypertension
Resumed previous amlodipine 10 mg daily, metoprolol succinate 50 mg daily
#Sinus Tachycardia
Resolved
#HLD
LDL 64
Continue statin
DVT prophylaxis�subcu Lovenox
Updated at bedside 02/04
Total time spent to see the patient on the floor, examine the patient, review data and lab results, discuss treatment plan with patient, nursing staff around 42 minutes.
Physical Exam
General: No acute distress
HEENT: Normocephalic, Atraumatic, EOMI, MMM
Respiratory: Clear to Auscultation bilaterally
Cardiac: Normal S1/S2, Regular Rate and Rhythm
GI: Soft, Nontender, Nondistended, Normal Bowel Sounds
Extremities: No Clubbing, Cyanosis, or Edema
Neuro: Nonfocal/Grossly Intact
Psych: Calm, Cooperative
Derm: No Visible lesions
Anticipated Discharge: > 48 hours
Subjective/Interval History
-
Date of Service: February 05, 2025
Patient denies nausea and vomiting. Reports his abdominal pain is 4 out of 10 in intensity. No chest pain, no shortness of breath. No fever.
Objective Data
-
Labs:
Laboratory Results
02/05/25
06:19
WBC 7.6
Hgb 13.2
Hct 38.0 L
Plt Count 202
APTT 28.5
Sodium 141
Potassium 3.6
Chloride 112 H
Carbon Dioxide 18 L
BUN 12
Creatinine 1.4 H
Glucose 106 H
Calcium 9.5
Total Bilirubin 0.5
AST 58
ALT 35
Alkaline Phosphatase 87
Vital Signs:
Vital Signs
Temp Pulse Resp BP Pulse Ox
98.1 F 84 16 162/75 100
02/05/25 08:03 02/05/25 08:28 02/05/25 08:03 02/05/25 08:28 02/05/25 08:03
[2025-02-05] MEDS: NORMOSOL-R/PLASMALYTE-A 1000 IV (16:35)
[2025-02-05] MEDS: LR IV (16:41)
[2025-02-05] MEDS: SODIUM BICARBONATE 1300 MG PO ×2 (17:26→21:59)
[2025-02-05] MEDS: NORVASC 10 MG PO (17:32)
[2025-02-06] MEDS: TYLENOL 1000 MG PO ×4 (00:53→17:13)
[2025-02-06 03:13] VITALS: BP 142/63
[2025-02-06 06:00] VITALS: BMI 29.0
[2025-02-06 07:01] LABS: % Basophils 0.1 % (0-2); % Immature Granulocytes 0.3 % (0-0.5); % Monocytes 4.7 % (1.7-9.3); % Neutrophils 88.9 % (42.2-75.2); Absolute Lymphocytes 0.7 10^3/uL (1.2-3.4); Absolute Monocytes 0.5 10^3/uL (0.1-0.6); Absolute Neutrophils 10.2 10^3/uL (1.4-6.5); Hematocrit 35.1 % (39.0-52.0); Hemoglobin 12.4 g/dL (13.0-18.0); Mean Corp Hgb Conc. 35.3 g/dL (33.0-37.0); Mean Corpuscular Volume 90.7 fL (80.0-94.0); Mean Platelet Volume 10.5 fL (7.4-10.4); Nucleated Red Blood Cells % 0 % (-); Platelet Count 206 10^3/uL (130-400); Red Blood Cell Count 3.87 10^6/uL (4.70-6.10); White Blood Cell Count 11.4 10^3/uL (4.8-10.8)
[2025-02-06 07:16] LABS: Blood Urea Nitrogen 13 mg/dl (9-20); Calcium 8.8 mg/dl (8.4-10.2); Carbon Dioxide 23 mmol/L (22-30); Chloride 110 mmol/L (98-107); Estimated Creatinine Clearance 53 ml/min; Glucose 123 mg/dl (70-99); Potassium 3.7 mmol/L (3.5-5.1); Sodium 141 mmol/L (135-145); eGFR 56.23
[2025-02-06 07:46] VITALS: BP 134/83
--- NOTE | 2025-02-06 07:57 | W.PN.HOSP.TC ---
Today's Communication/Plan
-
Discharge when cleared by colorectal surgery
Assessment / Plan
Assessment / Plan
HPI: 79M HTN HLD hx Sigmoid Volvulus managed conservatively for years hx Hernia repair p/w persistent vomiting abd pain. Started after dinner two nights ago prior to presentation. Before dinner, patient reported being in his usual state of health.
Severe pain primarily lower abdomen and left lower back. Pain occasionally extends to the upper abdomen. Patient also noted bloating. Pain persisted and worsen over next few days with associate nausea vomiting appetite loss. VSS stable on room
air. Labs relatively unremarkable, possible ANNY vs CKD noted Cr 1.5 CT noted large 11 cm diameter sigmoid volvulus. No CT evidence for colonic ischemia, pneumatosis, pneumoperitoneum, or ascites. Moderate to large amount of fecal material was
noted proximal to volvulus. GI and surgery evaluated and patient was taken urgently to endoscopy suite for decompression. Patient tolerated procedure well and noted significant relief in symptoms afterwards.
#Volvulus obstruction status post decompression 02/02/2025
Appreciate GI and colorectal surgery input, status post urgent decompression 02/02/2025
02/03 abdominal x-ray shows decompression of the sigmoid colon status post rectal tube placement
Patient denies history of [place], stroke
Denies shortness of breath with exertion, chest pain with exertion, lightheadedness or dizziness with exertion, syncope or near syncope
Echo reviewed, trop neg, EKG shows LBBB with prolonged QTc
Patient's risk is 6%, which is acceptable, and he may proceed for surgery
Status post sigmoidectomy with flexible sigmoidoscopy on 02/[address] Elmer Jeter
Advance to full liquid diet, pain control, PT/OT, Entereg as per CRS
#Prolonged QTc
Would avoid Zofran and other QTc prolonging agents
#Possible ANNY vs CKD III
Resolved, stop fluids, monitor creatinine, no nephrotoxic drugs/NSAIDs
#Non-anion gap metabolic acidosis
Resolved status post oral sodium bicarb
# Essential hypertension
Resumed previous amlodipine 10 mg daily, metoprolol succinate 50 mg daily
#Sinus Tachycardia
Resolved
#HLD
LDL 64
Continue statin
DVT prophylaxis�subcu Lovenox
Updated at bedside 02/06
Total time spent to see the patient on the floor, examine the patient, review data and lab results, discuss treatment plan with patient, nursing staff around 40 minutes.
Physical Exam
General: No acute distress
HEENT: Normocephalic, Atraumatic, EOMI, MMM
Respiratory: Clear to Auscultation bilaterally
Cardiac: Normal S1/S2, Regular Rate and Rhythm
GI: Soft, appropriately tender, Nondistended, Normal Bowel Sounds, incisions clean/dry/intact
Extremities: No Clubbing, Cyanosis, or Edema
Neuro: Nonfocal/Grossly Intact
Psych: Calm, Cooperative
Anticipated Discharge: Within 24 hours
Subjective/Interval History
-
Date of Service: February 06, 2025
Patient reports his abdominal pain is mild, 2 out of 10 in intensity. Patient is having gas, and had small amount of bleeding followed by some loose stools without blood. He denies chest pain, shortness of breath. No fever, no vomiting.
Objective Data
-
Labs:
Laboratory Results
02/06/25
05:59
WBC 11.4 H
Hgb 12.4 L
Hct 35.1 L
Plt Count 206
Sodium 141
Potassium 3.7
Chloride 110 H
Carbon Dioxide 23
BUN 13
Creatinine 1.3
Glucose 123 H
Calcium 8.8
Vital Signs:
Vital Signs
Temp Pulse Resp BP Pulse Ox
98.1 F 73 18 134/83 100
02/06/25 07:46 02/06/25 07:46 02/06/25 07:46 02/06/25 07:46 02/06/25 07:46
I&O
02/05/25 02/06/25 02/07/25
06:59 06:59 06:59
Intake Total 480 / 480
Output Total 1175 / 1175
Balance -695 / -695
[2025-02-06] MEDS: SODIUM BICARBONATE 1300 MG PO ×3 (08:33→21:39)
[2025-02-06] MEDS: NSS (PRESERVATIVE FREE) 10 ML IV (08:33)
[2025-02-06] MEDS: TOPROL XL 50 MG PO (08:33)
[2025-02-06] MEDS: ENTEREG 12 MG PO ×2 (08:33→20:38)
[2025-02-06] MEDS: PROTONIX IV 40 MG IV (08:33)
[2025-02-06] MEDS: THERAGRAN 1 TABLET PO (08:33)
[2025-02-06] MEDS: NORMOSOL-R/PLASMALYTE-A 1000 IV (08:41)
--- NOTE | 2025-02-06 09:59 | W.PN.CRS1 ---
Today's Communication / Plan
-
fulls
dc grey
lovenox
OOB
Assessment/Plan
-
POD#1 Sigmoidectomy, flexible sigmoidoscopy
WBC 11.4. Hb 12.4
Vitals normal
-Advance diet to full liquids
-OOB as tolerated
-Start lovenox for dvt prophylaxis, TEDS/SCDS in place
-OR pathology pending
-DC IVFs when tolerating po intake
-Okay to shower
-Appreciate hosptialist
-Pain control: Tylenol standing, Dilaudid PRN, roxicodone prn
Subjective Data
Procedure
02/05/2025- Sigmoidectomy, flexible sigmoidoscopy
Subjective Data
Date of Service: February 06, 2025
Patient states he feels well. He has no pain. He is very hungry. Has some minor rectal bleeding. Has flatus.
Objective Data
-
Vital Signs
Temp Pulse Resp BP Pulse Ox
98.1 F 73 18 134/83 100
02/06/25 07:46 02/06/25 07:46 02/06/25 07:46 02/06/25 08:33 02/06/25 07:46
Intake & Output
02/05/25 02/06/25 02/07/25
06:59 06:59 06:59
Intake Total 480 / 480
Output Total 1175 / 1175
Balance -695 / -695
Intake:
Oral fluids 480 / 480
Output:
Urine, Grey 1175 / 1175
Other:
Number of approximated MODERATE 3
amounts of urine
Lab Results
02/06/25 05:59
02/06/25 05:59
Physical Exam
-
General: No Acute Distress and AOx3
Abdomen: Soft, Non Distended and Non Tender
Skin: Warm and Dry
Wound: Dressing in Place
Incision: Clear, Dry, Intact
[2025-02-06 11:19] VITALS: BP 154/68
--- NOTE | 2025-02-06 14:10 | CM ---
CM following re: discharge planning.
Reviewed pt's chart, met with pt.
Pt is POD#1 Sigmoidectomy, flexible sigmoidoscopy, continue supportive care.
PT evaluation pending.
Pt lives with spouse in a 2 story home and is independent in all areas [employer].
D/C plan: home with anticipated no needs vs VN if recommended by PT.
CM will follow with discharge plan updates as hospitalization progresses
[2025-02-06 15:31] VITALS: BP 152/67
[2025-02-06 16:51] VITALS: BP 172/88
[2025-02-06] MEDS: LOVENOX 40 MG SC (17:02)
[2025-02-06] MEDS: NORVASC 10 MG PO (17:13)
[2025-02-06 23:11] VITALS: BP 146/70
[2025-02-07] MEDS: TYLENOL 1000 MG PO ×3 (00:03→11:56)
[2025-02-07 06:27] LABS: Hematocrit 34.8 % (39.0-52.0); Hemoglobin 12.1 g/dL (13.0-18.0); Mean Corp Hgb Conc. 34.8 g/dL (33.0-37.0); Mean Corpuscular Hgb 31.8 pg (27.0-31.0); Mean Corpuscular Volume 91.6 fL (80.0-94.0); Mean Platelet Volume 10.6 fL (7.4-10.4); Platelet Count 201 10^3/uL (130-400); Red Cell Dist. Width 13.3 % (11.5-14.5); White Blood Cell Count 11.3 10^3/uL (4.8-10.8)
[2025-02-07 06:49] LABS: Blood Urea Nitrogen 12 mg/dl (9-20); Carbon Dioxide 26 mmol/L (22-30); Chloride 112 mmol/L (98-107); Estimated Creatinine Clearance 53 ml/min; Glucose 96 mg/dl (70-99); Magnesium 2.1 mg/dl (1.6-2.3); Potassium 3.6 mmol/L (3.5-5.1); Sodium 143 mmol/L (135-145); eGFR 56.23
[2025-02-07 07:14] VITALS: BP 134/72
[2025-02-07] MEDS: ENTEREG 12 MG PO (07:58)
[2025-02-07] MEDS: NORVASC 10 MG PO (07:59)
[2025-02-07] MEDS: PROTONIX IV 40 MG IV (07:59)
[2025-02-07] MEDS: THERAGRAN 1 TABLET PO (07:59)
[2025-02-07] MEDS: NSS (PRESERVATIVE FREE) 10 ML IV (07:59)
[2025-02-07] MEDS: TOPROL XL 50 MG PO (07:59)
[2025-02-07] MEDS: SODIUM BICARBONATE 1300 MG PO (07:59)
--- NOTE | 2025-02-07 08:35 | W.PN.HOSP.TC ---
Today's Communication/Plan
-
Discharge today
Assessment / Plan
Assessment / Plan
HPI: 79M HTN HLD hx Sigmoid Volvulus managed conservatively for years hx Hernia repair p/w persistent vomiting abd pain. Started after dinner two nights ago prior to presentation. Before dinner, patient reported being in his usual state of health.
Severe pain primarily lower abdomen and left lower back. Pain occasionally extends to the upper abdomen. Patient also noted bloating. Pain persisted and worsen over next few days with associate nausea vomiting appetite loss. VSS stable on room
air. Labs relatively unremarkable, possible ANNY vs CKD noted Cr 1.5 CT noted large 11 cm diameter sigmoid volvulus. No CT evidence for colonic ischemia, pneumatosis, pneumoperitoneum, or ascites. Moderate to large amount of fecal material was
noted proximal to volvulus. GI and surgery evaluated and patient was taken urgently to endoscopy suite for decompression. Patient tolerated procedure well and noted significant relief in symptoms afterwards.
#Volvulus obstruction status post decompression 02/02/2025
Appreciate GI and colorectal surgery input, status post urgent decompression 02/02/2025
02/03 abdominal x-ray shows decompression of the sigmoid colon status post rectal tube placement
Patient denies history of [place], stroke
Denies shortness of breath with exertion, chest pain with exertion, lightheadedness or dizziness with exertion, syncope or near syncope
Echo reviewed, trop neg, EKG shows LBBB with prolonged QTc
Patient's risk is 6%, which is acceptable, and he may proceed for surgery
Status post sigmoidectomy with flexible sigmoidoscopy on 02/[address] Elmer Jeter
Patient is tolerating a regular diet
Medically stable and cleared by colorectal surgery for discharge
Follow-up with colorectal surgery in the office in 2 weeks and his PCP in 1 week
#Prolonged QTc
Would avoid Zofran and other QTc prolonging agents
#Probable stage III chronic kidney disease
Creatinine upon admission was 1.5, now 1.3, which appears to be his baseline
#Non-anion gap metabolic acidosis
Resolved status post oral sodium bicarb
# Essential hypertension
Resumed previous amlodipine 10 mg daily, metoprolol succinate 50 mg daily
#Sinus Tachycardia
Resolved
#HLD
LDL 64
Continue statin
DVT prophylaxis�subcu Lovenox
Updated at bedside 02/07
Physical Exam
General: No acute distress
HEENT: Normocephalic, Atraumatic, EOMI, MMM
Respiratory: Clear to Auscultation bilaterally
Cardiac: Normal S1/S2, Regular Rate and Rhythm
GI: Soft, appropriately tender, Nondistended, Normal Bowel Sounds, incisions clean/dry/intact
Extremities: No Clubbing, Cyanosis, or Edema
Neuro: Nonfocal/Grossly Intact
Psych: Calm, Cooperative
Anticipated Discharge: Today
Subjective/Interval History
-
Date of Service: February 07, 2025
Objective Data
-
Labs:
Laboratory Results
02/07/25
05:43
WBC 11.3 H
Hgb 12.1 L
Hct 34.8 L
Plt Count 201
Sodium 143
Potassium 3.6
Chloride 112 H
Carbon Dioxide 26
BUN 12
Creatinine 1.3
Glucose 96
Calcium 9.0
Vital Signs:
Vital Signs
Temp Pulse Resp BP Pulse Ox
98.4 F 75 16 134/72 100
02/07/25 07:14 02/07/25 07:14 02/07/25 07:14 02/07/25 07:59 02/07/25 07:14
I&O
02/06/25 02/07/25 02/08/25
06:59 06:59 06:59
Intake Total 480 / 480 860 / 860
Output Total 1175 / 1175 1150 / 1150
Balance -695 / -695 -290 / -290
[2025-02-07 08:42] LABS: % Basophils 0.3 % (0-2); % Immature Granulocytes 0.3 % (0-0.5); % Lymphocytes 15.6 % (20.5-51.1); % Monocytes 8.2 % (1.7-9.3); % Neutrophils 75.6 % (42.2-75.2); Absolute Lymphocytes 1.7 10^3/uL (1.2-3.4); Absolute Monocytes 0.9 10^3/uL (0.1-0.6); Absolute Neutrophils 8.3 10^3/uL (1.4-6.5); Nucleated Red Blood Cells % 0 % (-)
--- NOTE | 2025-02-07 09:30 | W.PN.CRS1 ---
Today's Communication / Plan
-
regular diet
possible dc later today if tolerating
Assessment/Plan
-
POD#2 Sigmoidectomy, flexible sigmoidoscopy
WBC (11.3) 11.4. Hb 12.1 (12.4)
Vitals normal
-Advance to regular diet
-OOB as tolerated
-Start lovenox for dvt prophylaxis, TEDS/SCDS in place
-OR pathology pending
-Okay to shower
-Appreciate hospitalist
-Pain control: Tylenol standing, Dilaudid PRN, roxicodone prn
-If he is tolerating a regular diet, he is okay from our standpoint for discharge. Follow up with Dr. Jeter in 2 weeks.
Subjective Data
Procedure
02/05/2025- Sigmoidectomy, flexible sigmoidoscopy
Subjective Data
Date of Service: February 07, 2025
Patient states he is feeling well. He has mild tenderness around the incision. He had multiple bowel movements and flatus overnight. Denies nausea or vomiting. He is out of bed in the chair.
Objective Data
-
Vital Signs
Temp Pulse Resp BP Pulse Ox
98.4 F 75 16 134/72 100
02/07/25 07:14 02/07/25 07:14 02/07/25 07:14 02/07/25 07:59 02/07/25 07:14
Intake & Output
02/06/25 02/07/25 02/08/25
06:59 06:59 06:59
Intake Total 480 / 480 860 / 860
Output Total 1175 / 1175 1150 / 1150
Balance -695 / -695 -290 / -290
Intake:
Oral fluids 480 / 480 860 / 860
Output:
Urine, [place] 1175 / 1175
Urine, Voided 1150 / 1150
Other:
Number of approximated MODERATE 3
amounts of urine
Lab Results
02/07/25 05:43
02/07/25 05:43
Physical Exam
-
General: No Acute Distress and AOx3
Abdomen: Soft, Non Distended and Tender (mild around incision)
Skin: Warm and Dry
Incision: Clear, Dry, Intact
[2025-02-07] MEDS: ROXICODONE 5 MG PO (11:56)
--- NOTE | 2025-02-07 12:04 | W.DCSUMMARY ---
Discharge Summary
Discharge Data
Date of Admission: 02/02/25
Date of Discharge: 02/07/25
-
Pending Results: No
Hospital Course
Discharge diagnosis:
Sigmoid volvulus status post decompression sigmoidectomy
Probable stage III chronic kidney disease
Non-anion gap metabolic acidosis
Essential hypertension
Sinus tachycardia
Hyperlipidemia
Degenerative disc disease
Small hiatal hernia
Enlarged prostate
Consults: GI and colorectal surgery
CT abdomen and pelvis:
1. SIGMOID COLON VOLVULUS with a large 11 cm diameter air distended loop of sigmoid colon extending superiorly into the abdomen to the level the diaphragm.
2. No CT evidence for colonic ischemia, pneumatosis, pneumoperitoneum, or ascites.
3. Moderate to large amount of fecal material in the ascending, transverse, and descending colon proximal to the volvulus.
4. Small hiatal hernia.
5. 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
6. Mild chronic bilateral renal disease.
7. Small nonobstructing left intrarenal calculi.
8. Mildly enlarged prostate gland causing chronic urinary bladder outlet obstruction.
9. Moderate multilevel lower lumbar discogenic degenerative disease.
Procedures:
02/02/2025olonoscopy for urgent decompression of sigmoid volvulus
02/05/2025�sigmoidectomy and flexible sigmoidoscopy
Hospital course:
79-year-old male with a past medical history of hypertension and hyperlipidemia who was admitted for a sigmoid volvulus. Patient was seen in conjunction with GI and colorectal surgery. He underwent urgent decompression of his sigmoid volvulus on
02/02/2025. He then underwent sigmoidectomy and flexible sigmoidoscopy on 02/05/2025. Patient did well postoperatively. He tolerated a clear liquid diet, and was slowly advance. He was having bowel movements. His pain was well-controlled. He
tolerated a regular diet on the day of discharge. He is medically stable and cleared by colorectal surgery for discharge. He needs to follow-up with his primary care provider in 1 week, and colorectal surgery in the office in 2 weeks.
Disposition: Home self-care
Discharge planning: Required 37 minutes
Discharge Plan
-
Patient Disposition: Home (Routine Discharge)
Discharge Diagnosis/Procedures: Sigmoid volvulus status post sigmoidectomy
Condition: Good
Diet: Regular
Activity: No strenuous activity
Additional Activity: No lifting over 10lbs (gallon of milk)
Driving Restrictions: As prior to admission
Wound Care: Allow glue to naturally fall off. Do not pick at incisions.
Referrals:
Dakota Ramesh MD [Family Provider] - in one week
Elmer Jeter MD [Active, ColoRectal] - in two weeks
Additional Discharge Medication Instructions: Tylenol as needed for pain. Maximum dose of Tylenol is 4,000mg in 24 hours.
Prescriptions:
New
oxycodone 5 mg Tablet
5 mg PO Q4HPRN PRN (Reason: 1 tab for moderate pain, 2 tabs for severe pain) Qty: 30 0RF
polyethylene glycol 3350 17 gram/dose powder
17 g PO DAILY PRN (Reason: Constipation) Qty: 510 0RF
acetaminophen [Tylenol Extra Strength] 500 mg Tablet
1,000 mg PO Q6 PRN (Reason: mild pain or fever) Qty: 180 0RF
Continued
cyanocobalamin (vitamin B-12) 100 mcg Tablet
100 mcg PO DAILY
amlodipine 10 mg Tablet
10 mg PO DAILY
rosuvastatin 10 mg Tablet
10 mg PO DAILY
metoprolol succinate 50 mg Tablet Extended Release 24 Hr
50 mg PO DAILY
Discharge Orders:
Discharge Patient (As Directed); Ordered 02/07/25
Ordered By: Jerry Olivarez
Discharge Date and Time
Discharge Date/Time: 02/07/25 12:56
Print Language: LAO
[2025-02-07 12:17] VITALS: BP 148/70
--- NOTE | 2025-02-07 13:18 | CM ---
CM following re: discharge planning.
Reviewed pt's chart.
Discharge order noted. Pt is aware, expressed his agreement with discharge. IMM reviewed over the phone, pt expressed his agreement, declined to have a copy, [facility]OD[facility]IG[facility] letter placed on chart.
No after care VN services indicated.
D/C plan: home no after care VN needs, Spouse to transport.
--- NOTE | 2025-02-07 15:00 | PN.CDI ---
CDI
- -
CDI:
Physician Documentation Request
Admit Date: 02/02/25 15:11
Dear Doctor Do,
Clinical Indicators:
Patient admitted with Volvulus obstruction; s/p sigmoidectomy 02/05.
02/06 PN, 'Possible ANNY vs CKD III ...Resolved, stop fluids...'
Cr/GFR trend:
Laboratory Tests
02/02/25 02/03/25 02/04/25
07:53 05:34 05:28
Creatinine 1.5 H 1.4 H 1.2
eGFR 47.36 51.45 >60.00
02/05/25 02/06/25 02/07/25
05:59 05:43
Creatinine 1.4 H 1.3 1.3
eGFR 51.45 56.23 56.23
Please clarify the following:
ANNY was ruled out; CKD 3a only
ANNY is still a likely, suspected, probable diagnosis
Other, please specify
Criteria for ANNY*
1 Increase in serum creatinine by > or = to 0.3 mg/dL (> or = to 26.5 micromol/L) within 48 hours, OR
2 Increase in serum creatinine to > or = to 1.5 times baseline, which is known or presumed to have occurred within 7 days, OR
3 Urine volume < 0.5 nL/kg/hour for six hours
Stages of Chronic Kidney Disease*
Level Description GFR
G1 Normal or High >90
G2 Mildly decreased 60-89
G3a Mildly to moderately decreased 45-59
G3b Moderately to severely decreased 30-44
G4 Severely decreased 15-29
G5 Kidney failure <15
Use of terms such as suspected, likely, concern for, or probable (associated with a specific diagnosis that is being evaluated, monitored, or treated as if it exists) are acceptable and can be coded in the inpatient setting, when documented at the
time of discharge.
Thank you,
MONI Butts RN
CDI Specialist
available via tiger text
Please use your independent medical judgment in providing your response.
*Source: Kidney Disease: Improving Global Outcomes (KDIGO) 2012
== END 2025-02-07 12:56 | disposition home or self-care (01) | DRG 330 ==
LOC: 2 NORTH 15:11
PROVIDERS: Physician Assistant; Surgery; ADMITTING PHYSICIAN Internal Medicine; ATTENDING PHYSICIAN Family Medicine; CONSULT PHYSICIAN Internal Medicine Gastroenterology; EMERGENCY PHYSICIAN Emergency Medicine; FAMILY PHYSICIAN Family Medicine; OTHER PHYSICIAN Surgery
PROC: 0D7N8ZZ Dilation of Sigmoid Colon, Via Natural or Artificial Opening Endoscopic (ICD-10-PCS; 2025-02-02)
PROC: 0DBN4ZZ Excision of Sigmoid Colon, Percutaneous Endoscopic Approach (ICD-10-PCS; 2025-02-05)
DX: K56.2 Volvulus (principal); E87.20 Acidosis, unspecified; I12.9 Hypertensive chronic kidney disease with stage 1 through stage 4 chronic kidney disease, or unspecified chronic kidney disease; N18.30 Chronic kidney disease, stage 3 unspecified
CPT/HCPCS: 88307; 74018; 74019; 74177; 80048; 80053; 80061; 81003; 81015; 83036; 83690; 83735; 83880; 84484; 85025; 85027; 85610; 85730; 86850; 86900; 86901; 93005; 93306; 96374; 96375; 97162; 99285; C1769; C1776; J1335; Q9967